=== PATIENT | male | born 1960 | race Caucasian/White ===

== ENCOUNTER 2016-08-21 10:57 | Observation (INO) | payer MEDICAID ==
[2016-08-21] MEDS ORDERED: IOPAMIDOL 370 (76%) IV.SOLN 150 ML IV ONE (10:58)
--- NOTE | 2016-08-21 11:38 | RAD ---
CHEST - 2 VIEWS COMPARISON: None. HISTORY: Shortness of breath and weight loss. FINDINGS: Views: Frontal and lateral chest Lungs: Normal Heart and vessels: Normal Trachea and bronchi: Normal Mediastinum and sharath: Normal Costophrenic sulci: Normal Chest wall and bones: Normal. Upper abdomen: Normal. IMPRESSION: Negative 2 view chest.
[2016-08-21 11:55] LABS: ABSOLUTE NEUTROPHIL COUNT 2.3 K/mm3 (1.8-7.7); BASO % 0.3 % (0.2-1.0); HEMATOCRIT 46.5 % (32.0-52.0); HEMOGLOBIN 15.7 gm/l (14.0-18.0); IMM NEUT% 0.3 % (0-1); LYMPH # 0.6 (1.0-4.8); LYMPH % 19.1 % (15-45); MEAN CELL VOLUME 85.6 fl (80.0-94.0); MEAN CORPUSCULAR HEMOGLOBIN 28.9 pg (27.0-31.0); MEAN CORPUSCULAR HGB CONC 33.8 g/dl (33.0-37.0); MEAN PLATELET VOLUME 9.9 fl (7.4-10.4); MONO # 0.3 (0.0-0.8); MONO % 8.8 % (4-12); NEUT % 71.5 % (43-75); PLATELET COUNT 184 K/mm3 (130-400); RED CELL DISTRIBUTION WIDTH 13.1 % (11.5-14.5)
[2016-08-21 12:13] LABS: ALB/GLOB RATIO 1.5 (>1.0); ALBUMIN 4.6 gm/dL (3.5-5.7); CALCIUM 10.3 mg/dL (8.6-10.3); MAGNESIUM 1.9 mg/dL (1.9-2.7); TROPONIN I 0.02 ng/ml (0.0-0.06)
[2016-08-21 12:17] LABS: CKMB ISOENZYME 4.4 ng/ml (0.6-6.3)
[2016-08-21] MEDS ORDERED: LACTATED RINGERS 1,000 ML ONE ×2 (12:31→14:25)
[2016-08-21] MEDS ORDERED: MORPHINE SULFATE 4 MG/ML SYRINGE ONE (12:36)
--- NOTE | 2016-08-21 14:37 | CT ---
ABD/PELVIS W/ CON COMPARISON: None. HISTORY: Epigastric pain and elevated lipase Technique: No oral contrast. Intravenous injection 125 mL Isovue 370. Using a [employer] Aquilion [address] scanner, images were obtained from the diaphragm to the floor the pelvis. An automated dose reduction technique was used to minimize patient radiation dose. Dose information: DLP(mGycm): 978.50 FINDINGS: Lung bases: 11 mm pleural-based nodule, posterior right lower lobe. Inferior mediastinum and heart: Normal. Liver: Normal. Gallbladder:Normal. Bile ducts: Normal. Pancreas: Normal. Spleen: Splenomegaly. Adrenal glands: Normal. Kidneys: Normal. Ureters: Normal Urinary bladder: Normal. Prostate gland and seminal vesicles: Normal. Blood vessels: Normal Lymph nodes: Normal Stomach: Normal Duodenum: Normal Small intestine: Normal Appendix: Normal Colon: Normal Abdominal wall and supporting musculature: Normal Bones: No acute finding. L4 and L5 laminectomies and fusion with hardware and bone graft. IMPRESSION: 1. No CT evidence of pancreatitis. 2. 11 mm pleural-based nodule, posterior right lower lobe. 3. Splenomegaly. 4. L4 and L5 laminectomies and fusion with hardware and bone graft. The report was sent to the emergency department electronic medical record system 08/21/2016 at 14:39
--- NOTE | 2016-08-21 14:38 | CT ---
CTA CHEST FOR PE COMPARISON: Chest 2 views, 08/21/2016 HISTORY: Dyspnea and elevated d-dimer. Technique: Intravenous injection 80 mL Isovue-370. Using a [employer] Aquilion [address] scanner, following a CT angiogram protocol, images obtained through the thorax. Under concurrent supervision and interpretation, requiring a separate 3-D workstation, the technologist created 3-D CT angiograms. An automated dose reduction technique was used to minimize patient radiation dose. Dose information: DLP(mGycm): 978.50 FINDINGS: Pulmonary arteries and veins: Suboptimal contrast opacification. No pulmonary embolism. Aorta: Normal Heart and coronary arteries: Normal. Lungs: At the posterior pleural surface of the right lower lobe, 11 mm round opacity. Trachea and bronchi: Normal. Mediastinum and sharath: Normal. Pleura and pericardium: Normal. Chest wall: Normal. Spine: Normal. Upper abdomen:Normal. 3-D CT angiogram: Normal. IMPRESSION: 1. No evidence of pulmonary embolism. 2. 11 mm pleural-based opacity in the right lower lobe. Inflammatory process is favored over a neoplasm. This should be followed with a repeat CT scan in 3 months. Report was sent to the emergency department electronic medical record system 08/21/2016 at 14:39
[2016-08-21] MEDS ORDERED: SODIUM CHLORIDE 0.9% 100 ML IV PRN (14:44)
[2016-08-21] MEDS ORDERED: BISACODYL 5 MG TABLET.EC PO PRN (14:44)
[2016-08-21] MEDS ORDERED: ACETAMINOPHEN 325 MG TABLET PO PRN (14:44)
[2016-08-21] MEDS ORDERED: HYDROMORPHONE HCL 2 MG/ML SYRINGE IV PRN (14:44)
[2016-08-21] MEDS ORDERED: MENTHOL/CETYLPYRD 1 EACH LOZENGE PO PRN (14:44)
[2016-08-21] MEDS ORDERED: BLISTEX LIPSTICK 1 EACH TP PRN (14:44)
[2016-08-21] MEDS ORDERED: BISACODYL 10 MG SUP PR PRN (14:44)
[2016-08-21] MEDS ORDERED: ONDANSETRON 4 MG/2ML 2 ML VIAL IV PRN (14:44)
[2016-08-21] MEDS ORDERED: MAGNESIUM HYDROXIDE 30 ML UDCUP PO PRN (14:44)
[2016-08-21] MEDS ORDERED: HYDROMORPHONE HCL 1 MG/ML SYRINGE IV PRN (14:49)
[2016-08-21] MEDS ORDERED: HYDROMORPHONE HCL 0.5 MG/0.5 ML SYRINGE IV PRN (14:50)
[2016-08-21] MEDS ORDERED: PUMP TUBING ONE (14:56)
[2016-08-21] MEDS ORDERED: PANTOPRAZOLE SODIUM 40 MG VIAL IV SCH (15:00)
[2016-08-21] MEDS: SODIUM CHLORIDE 0.9% 1,000 ML IV SCH ×2 (15:46→22:56)
[2016-08-21 15:58] VITALS: BMI 21.0
[2016-08-21] MEDS ORDERED: ENOXAPARIN SODIUM 40 MG/0.4 ML SYRINGE SUB-Q SCH (16:30)
[2016-08-21] MEDS: INSULIN ASPART (DOSE) 100 UNITS/1 ML SUB-Q PRN ×2 (17:10→22:36)
[2016-08-21] MEDS: OXYCODONE HCL 5 MG TABLET PO PRN (19:17)
[2016-08-21] MEDS ORDERED: DIPHENHYDRAMINE HCL 50 MG CAPSULE PO PRN (21:25)
[2016-08-21] MEDS ORDERED: DIPHENHYDRAMINE HCL 25 MG CAPSULE ONE (22:13)
[2016-08-21] MEDS: IBUPROFEN 200 MG TABLET PO PRN (22:22)
[2016-08-21] MEDS: DOCUSATE SODIUM 100 MG CAPSULE PO SCH (22:30)
[2016-08-22 06:20] LABS: ABSOLUTE NEUTROPHIL COUNT 1.6 K/mm3 (1.8-7.7); BASO % 0.4 % (0.2-1.0); EOS % 1.1 % (0.9-2.9); HEMOGLOBIN 13.2 gm/l (14.0-18.0); IMM NEUT% 1.1 % (0-1); LYMPH # 0.7 (1.0-4.8); LYMPH % 27.1 % (15-45); MEAN CORPUSCULAR HEMOGLOBIN 28.4 pg (27.0-31.0); MEAN PLATELET VOLUME 9.9 fl (7.4-10.4); MONO # 0.3 (0.0-0.8); MONO % 10.9 % (4-12); NEUT % 59.4 % (43-75); PLATELET COUNT 140 K/mm3 (130-400); RED CELL DISTRIBUTION WIDTH 12.9 % (11.5-14.5)
[2016-08-22 06:39] LABS: ALB/GLOB RATIO 1.6 (>1.0); ALBUMIN 3.6 gm/dL (3.5-5.7); ALT/SGPT 23 U/L (7-52); BLOOD UREA NITROGEN 10 mg/dL (7-25); BUN/CREATININE RATIO 11 (6-20); CALCIUM 9.1 mg/dL (8.6-10.3); CHOLESTEROL RISK RATIO 8.3 (4.0-6.7); GLOMERULAR FILTRATION RATE 87 mL/min (60-93); HDL CHOLESTEROL 24 mg/dL (40-92); LIPASE 450 U/L (11-82)
[2016-08-22 06:52] VITALS: BP 128/78
[2016-08-22] MEDS: INSULIN ASPART (DOSE) 100 UNITS/1 ML SUB-Q PRN (08:22)
[2016-08-22] MEDS: DOCUSATE SODIUM 100 MG CAPSULE PO SCH (08:23)
[2016-08-22] MEDS: OXYCODONE HCL 5 MG TABLET PO PRN (08:28)
[2016-08-22] MEDS ORDERED: GLIMEPIRIDE 4 MG TABLET PO SCH (09:00)
[2016-08-22] MEDS ORDERED: DULOXETINE HCL 30 MG CAPSULE.DR PO SCH (09:00)
[2016-08-22] MEDS ORDERED: ATORVASTATIN CALCIUM 10 MG TABLET PO SCH (09:00)
[2016-08-22] MEDS: IBUPROFEN 200 MG TABLET PO PRN (09:31)
--- NOTE | 2016-08-22 12:21 | HP ---
EVANGELIST MENA [id number] DATE OF ADMISSION: 08/21/2016 HISTORY OF PRESENT ILLNESS: The patient is a 56-year-old male with chronic pain involving multiple sites including his back from degenerative disk disease, his knees from osteoarthritis, and his left shoulder due to rotator cuff tear who presents with complaints of pain in these areas. He also complains of lack of appetite and generalized malaise with weakness. He also complains of a persistent cough, and has felt dyspnea upon exertion over the past week. The emergency department felt like the patient had pancreatitis based on an elevated lipase level and referred him to the Hospitalist service for this diagnosis neglecting to mention that he has had no epigastric pain whatsoever. He denies any chest pain. REVIEW OF SYSTEMS: Negative for any fevers, or chills. He has had no upper respiratory symptoms, no wheezing, no palpitations, nausea or vomiting, no diarrhea, or constipation. He has a chronic pain complaint as I mentioned. He denies any headaches, fainting, blackouts, or seizures. He has had a little polydipsia, but denies any polyuria. He does report complaints of depression with hopelessness, lack of appetite, lack of motivation, lack of interest in his usual activities, and denies any suicidal ideation. PAST MEDICAL HISTORY: Is significant for: 1. Severe degenerative disk disease involving his back. 2. He also has advanced osteoarthritis involving his knees. 3. Rotator cuff tear on the left which has been present for the last 6 months. 4. He reports a history of hypertension at the age of 20, but stopped his medicines about 5 years ago when his blood pressure dropped to low after a divorce. He is no long on any antihypertensive therapy. 5. He reports a hospitalization in 1992 for paroxysmal atrial tachycardia, but was taken off all of his medications last January at the [facility]. 6. He reports he had a myocardial infarction in 1998 based on elevated enzymes, but never had any workup. He does not have any exertional chest pain. 7. 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 He is disabled due to these multiple injuries. 8. He has adult-onset diabetes and is on oral medications for this complicated by neuropathy. PAST SURGICAL HISTORY: Is significant for: 1. Lumbar fusion procedure involving L3 and L4 in [place] in 2013 complicated by a nerve injury to the right leg and chronic sciatica in the left leg. 2. A right foot fusion after Lis Franc fracture complicated by methicillin-resistant Staphylococcus aureus in 2009. 3. He had a left foot bunionectomy. 4. He has had arthroscopic surgery on the right knee. ALLERGIES: HE REPORTS INTOLERANCE TO TYLENOL, GABAPENTIN, AND PHENERGAN. HE STATES THAT HIS BODY JUST DOES NOT PROCESS TYLENOL AND HE HAS HAD POISONINGS FROM THIS IN THE PAST. THE GABAPENTIN MAKES HIM IRRITABLE, AND THE PROMETHAZINE MAKES HIM FEEL LIKE HE IS CRAWLING OUT OF HIS SKIN. FAMILY HISTORY: Family history is significant for father of lung cancer. Brother of pulmonary embolism after complications from a lung abscess. His mother is alive at 83. SOCIAL HISTORY: He has been for about five years. He has two grown sons. He is a 30 to 40 pack year history of smoking, and is interested in quitting. He has cut back and he is down to a quarter pack a day. He is remarried. He drinks alcohol maybe two, or three times a week. He has never been a heavy drinker. PHYSICAL EXAMINATION: VITAL SIGNS: Show a temperature of 98.3, pulse 74, blood pressure 146/95, respirations 16, oxygen saturation is 99% on room air. Body mass index is 21. Weight is 66 kilograms. GENERAL: This is a well-developed, well-nourished male in no acute distress. HEENT: Exam shows moist pink oral mucosa. Pupils are equal, round and reactive to light. Extraocular movements are intact. No oral lesions are present. NECK: Supple without lymphadenopathy or thyromegaly. CHEST: Lungs are clear to auscultation bilaterally. CARDIOVASCULAR: Exam reveals a regular rate and rhythm without a murmur. ABDOMEN: Soft, nontender, nondistended with positive bowel sounds. EXTREMITIES: Shows some atrophy of the distal leg muscles in the right leg, and post-surgical changes in both feet. There is no peripheral edema. Dorsalis pedis pulses are 2+ in both feet. He does have some neuropathy in the feet and the hands following a stocking glove distribution. LABORATORY STUDIES: CBC shows a white count of 3.2, hemoglobin of 15.7, and platelet count of 184,000, normal differential. D-Dimer was elevated at 1.18. Chemistry profile showed a sodium of 128, potassium 3.9, chloride 91, BUN 12, creatinine 1.1, glucose 533, and magnesium 1.9. Liver function tests were normal. Troponin I was 0.02. Albumin 4.6, lipase 711. DIAGNOSTIC IMAGING: Studies which were not available at the time of admission, but currently show no evidence of pancreatitis on CT of the abdominal and pelvis. He does have some splenomegaly seen, and 11 mm pleural base nodule involving the right lower lobe. There is no evidence of a pulmonary embolism. There is evidence of L4 and L5 laminectomy infusion with hardware and bone graft. Chest x-ray is unremarkable. Electrocardiogram shows sinus rhythm with a left anterior vesicular block. ASSESSMENT AND PLAN: The patient has had some involuntary weight loss approximately 14 pounds in the last month with signs and symptoms of major depression and loss of appetite. I suspect this is the cause of his weight loss. He also has chronic pain at multiple site associated with osteoarthritis and degenerative lumbar disk disease complicated by a neuropathy. He had adult-onset diabetes also complicated by neuropathy. He has elevated lipase of uncertain significance. He has a right lower lobe lung nodule with a history of asbestos exposure as a child and in the [place]. This will need a follow up CT in 3 months. He has some evidence of chronic bronchitis likely due to his smoking. Initially, he was admitted based on faulty information. At this time, I think he meets criteria for observation, and I do not think he has clinical evidence of pancreatitis. He has been aggressively hydrated. He had a hyponatremia, uncertain etiology. We will recheck his sodium in the morning after he has had some fluids. Suspect some dehydration contributed to this. He has hyperglycemia, but possible due to eating high glucose foods right before the blood test, and his numbers are improving. Patient would like to get established with a local provider. We will work with care management to see if we can get him a follow up physician or information regarding how to establish with the local provider. Venous thrombosis risk is low and prophylaxis is not indicated. Further treatment and recommendations will depend on his hospital course. MORIAH/scotty
--- NOTE | 2016-08-22 19:44 | DS ---
EVANGELIST MENA [id number] DATE OF ADMISSION: 08/21/2016 DATE OF DISCHARGE: 08/22/2016 DISCHARGE DIAGNOSES: 1. Involuntary weight loss. 2. Malaise. 3. Weakness. 4. Chronic back pain. 5. Left shoulder pain. 6. Bilateral knee pain. 7. Major depression. 8. Degenerative lumbar disk disease. 9. Left shoulder rotator cuff tear. 10. Diabetes uncontrolled. 11. Lipase elevation of uncertain significance. 12. Pulmonary nodule of uncertain significance. 13. Chronic bronchitis. SUMMARY OF ADMISSION AND HOSPITAL COURSE: The patient is a 56-year-old male who presented to [facility] Emergency Department with multiple somatic complaints and generalized malaise as well as some involuntary weight loss with about 14 pounds in the last month. He reports anorexia, loss of interest in usual activities, and symptoms of depression. Workup in the emergency department was quite extensive. He had laboratory studies done and with an elevated D-Dimer level he underwent CT angiogram of the chest. He had history of some chronic cough. The CTA of the chest also included a CT of the abdomen and pelvis presumably performed because of an elevated lipase, although the patient had no gastrointestinal symptoms whatsoever. The patient's CT of the chest showed evidence of an 11-mm pleural based opacity in the right lower lobe. Inflammatory process was favored over neoplasm. A repeat CT was recommended in three months. No infiltrates were identified. No other acute abnormalities were seen. The abdominal CT showed no CT evidence of pancreatitis. There was some mild splenomegaly noted, and evidence of prior lumbar surgeries. The patient's initial laboratory studies showed a CBC with a white count of 3.2, hemoglobin of 15.7, and platelet count of 184,000. His D-Dimer was elevated at 1.18. Chemistry profile showed sodium of 128, potassium 3.9, chloride 91, BUN 12, creatinine 1.1, glucose 533. He was referred to the Hospitalist service. He initially was admitted, but after examined the patient next according to his history, he was not felt to have acute pancreatitis. His status was changed to observation. He was hydrated overnight. He remained medically stable. He had some mild persistent hyperglycemia with blood sugars in the 300s. A hemoglobin A1c level was ordered, but has not yet resulted. He had a fasting lipid profile, and this showed a triglyceride level of 910, and a total cholesterol level of 200. LDL was not reportable. HDL was low at 24. His amylase level initially was 148, and his lipase level initially was 711 coming down to 450 on the day of discharge. The patient was felt to be medically stable with is chronic pain complaints. He was felt to be suitable for discharge. PHYSICAL EXAM: VITAL SIGNS: Showed a temperature of 97.8, pulse 82, blood pressure 128/78, respirations 20, oxygen saturation is 99% on room air. Body mass index is 23.9. Weight is 75.5 kg. GENERAL: This is a well-developed, well-nourished male in no acute distress. HEENT: Unremarkable. LUNGS: Clear to auscultation bilaterally. CARDIOVASCULAR: Exam reveals a regular rate and rhythm without a murmur. ABDOMEN: Soft, nontender, nondistended with positive bowel sounds. EXTREMITIES: Showed no peripheral edema. 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 ALLERGIES: INCLUDE ACETAMINOPHEN, GABAPENTIN, AND PROMETHAZINE. DISCHARGE INSTRUCTIONS: He will work to get established with a local provider. He was given multiple local providers phone numbers. I recommended he get a follow up CT of the chest in the next 3 months, and that he get refills on his medications before they run out in 30 days. DISCHARGE MEDICATIONS: 1. He is instructed to hold metformin until Tuesday due to the IV contrast administration, then he will resume 1000 mg twice daily with meals. 2. He is prescribed Lipitor 20 mg daily for his triglycerides, and his dyslipidemia. 3. He will try Benadryl 50 mg at bedtime as needed for insomnia. 4. He is prescribed Cymbalta 30 mg daily for a week, followed by 60 mg daily thereafter for his chronic pain and his chronic depression. 5. He is prescribed Amaryl 2 mg daily. If he starts to develop hypoglycemia with this medication, he was instructed to cut the dose in half, or stop the medication. 6. He will continue ibuprofen 600 mg every 6 hours as needed for his chronic pain. 7. I did give him supplemental pain medication for severe pain to use sparingly 5 mg of oxycodone every 4 hours if needed only 25 pills with no refills. DISCHARGE CONDITION: Good. MORIAH/scotty
[2016-08-22] MEDS ORDERED: DIPHENHYDRAMINE HCL 25 MG CAPSULE PO PRN (21:00)
[2016-08-23 08:56] LABS: A1C-GLYCOHEMOGLOBIN 1.2 g/dl; HEMOGLOBIN-GLYCO 14.7 g/dl
== END 2016-08-22 11:40 | disposition home or self-care (01) ==
LOC: ED 10:57 → ICU 14:21 → INTOOBSV 14:21
PROVIDERS: ADMIT Family Medicine; ATTEND Family Medicine
DX: M75.102 Unspecified rotator cuff tear or rupture of left shoulder, not specified as traumatic (principal); Z79.84 Long term (current) use of oral hypoglycemic drugs; E78.5 Hyperlipidemia, unspecified; G47.00 Insomnia, unspecified; F32.9 Major depressive disorder, single episode, unspecified; G89.29 Other chronic pain; R63.4 Abnormal weight loss; R53.1 Weakness; M47.816 Spondylosis without myelopathy or radiculopathy, lumbar region; E11.42 Type 2 diabetes mellitus with diabetic polyneuropathy; J42 Unspecified chronic bronchitis; M54.9 Dorsalgia, unspecified
CPT/HCPCS: 83690 ×2; 85379; 82150; 85025 ×2; 82553; 80053 ×2; 83036; 80061; 83735; 84484; 36415; 71020; 74177; 71275; 99285 ×2; 96374; 96361 ×2; 93005; A9270 ×9; J1170; J1650; J2270; C9113; J7120 ×2; J7030; J1815 ×3; Q9967

== ENCOUNTER 2016-08-28 18:01 | Emergency (ER) | payer MEDICAID ==
[2016-08-28] MEDS ORDERED: MAALOX/LIDO2%VISC/SIMETHICONE 40 ML BOT ONE (19:14)
[2016-08-28] MEDS ORDERED: INSULIN NPH HUMAN RECOM (DOSE) 100 UNITS/1 ML SUB-Q ONE (19:15)
== END 2016-08-28 19:44 | disposition home or self-care (01) ==
LOC: ED 18:01
DX: E11.65 Type 2 diabetes mellitus with hyperglycemia (principal); K29.70 Gastritis, unspecified, without bleeding; I25.2 Old myocardial infarction; F17.210 Nicotine dependence, cigarettes, uncomplicated; Z79.84 Long term (current) use of oral hypoglycemic drugs; Z79.899 Other long term (current) drug therapy
CPT/HCPCS: 99282; 96372; 82962; 99283; A9270; J1815